=== PATIENT | female | born 1970 | race Hispanic/Latino ===

== ENCOUNTER 2020-01-25 17:52 | Emergency (ER) | payer SELFPAY ==
--- NOTE | 2020-01-25 18:34 | ER ---
Nurse's Notes [facility] Name: Yudith Ramirez Age: 49 yrs Sex: Female : 1970 Arrival Date: 01/25/2020 Time: 17:59 Bed 13 Private MD: Diagnosis: Unspecified asthma with (acute) exacerbation Presentation: 01/24 18:00 Chief complaint: EMS states: Pt had asthma attack in parking lot, used rescue inhaler x ph 3 w/ no relief, Spo2 93% RA, albuterol nebulizer given by EMS, symptoms improved, no fever or cough, temp 97.3. Coronavirus screen: Patient denies a cough. Patient denies shortness of breath or difficulty breathing. Patient denies measured and/or subjective temperature greater than 100.4F prior to today's visit. Patient denies travel on a cruise ship or to a country the [facility] currently lists as an affected area. Patient denies contact with known and/or suspected case of COVID-19. Ebola Screen: No symptoms or risks identified at this time. Initial Sepsis Screen: Does the patient meet any 2 criteria? No. Patient's initial sepsis screen is negative. Does the patient have a suspected source of infection? No. Patient's initial sepsis screen is negative. Risk Assessment: Do you want to hurt yourself or someone else? Patient reports no desire to harm self or others. Onset of symptoms was January 25, 2020. 18:00 Method Of Arrival: EMS: [facility] 18:00 Acuity: DIVYA 4 ph Historical: - Allergies: 18:02 No Known Allergies; ph - PMHx: 18:02 Asthma; ph - PSHx: 18:02 (SEPTEMBER 2015); ph - Immunization history:: Adult Immunizations unknown. - Social history:: Smoking status: Patient denies any tobacco usage or history of. Screenin:54 Abuse screen: Denies threats or abuse. Denies injuries from another. Nutritional ph screening: No deficits noted. Tuberculosis screening: No symptoms or risk factors identified. Fall Risk None identified. Assessment: 18:53 General: Appears in no apparent distress. comfortable, well groomed, Behavior is calm, ph cooperative, appropriate for age, Denies fever, feeling ill. Pain: Denies pain. Neuro: Level of Consciousness is awake, alert, obeys commands, Oriented to person, place, time, situation. Cardiovascular: Capillary refill < 3 seconds in bilateral fingers Patient's skin is warm and dry. Respiratory: Airway is patent Respiratory effort is even, unlabored, Respiratory pattern is regular, symmetrical. Derm: Skin is intact, is healthy with good turgor, Skin is pink, warm \T\ dry. Vital Signs: 18:09 BP 115 / 75; Pulse 70; Resp 16; Temp 97.9(TE); Pulse Ox 100% on R/A; Weight 62.14 kg; ss Height 5 ft. 0 in. (152.40 cm); Pain 0/10; 18:53 BP 112 / 78; Pulse 79; Resp 18; Temp 98.0; Pulse Ox 99% on R/A; ph 18:09 Body Mass Index 26.76 (62.14 kg, 152.40 cm) ED Course: 17:59 Patient arrived in ED. ph 18:00 Patient has correct armband on for positive identification. Bed in low position. Call ph light in reach. Side rails up X 1. 18:01 Triage completed. ph 18:03 [facility] kb 18:03 Leonardo Patino MD is Attending Physician. kb 18:08 Sherry Noel, BG is Primary Nurse. ph 18:09 Arm band placed on right wrist. ss 18:54 No provider procedures requiring assistance completed. Patient did not have IV access ph during this emergency room visit. Administered Medications: 18:50 Drug: predniSONE 40 mg Route: PO; ph 18:53 Follow up: Response: No adverse reaction ph Outcome: 18:34 Discharge ordered by MD. kb 18:54 Discharged to home ambulatory. ph 18:54 Condition: good 18:54 Discharge instructions given to patient, Instructed on discharge instructions, follow up and referral plans. medication usage, Demonstrated understanding of instructions, follow-up care, medications, Prescriptions given X 1. 18:54 Patient left the ED. ph Signatures: Fabby Gar FNP-C FNP-Ckb Smirch, Shelby, RN RN Sherry Noel RN RN ph
--- NOTE | 2020-01-25 18:34 | EDPHYS ---
Physician Documentation [facility] Name: Yudith Ramirez Age: 49 yrs Sex: Female : 1970 Arrival Date: 01/25/2020 Time: 17:59 Bed 13 Private MD: ED Physician Leonardo Patino HPI: 01/24 18:29 This 49 yrs old Female presents to ER via EMS with complaints of Asthma kb Exacerbation. 18:29 The patient presents to the emergency department with wheezing, Current therapy: kb albuterol inhaler, that began without any particular precipitating event, the patient was reported to have non-productive cough, trouble breathing, Pre-hospital care: med neb, albuterol, OTC inhaler. Onset: The symptoms/episode began/occurred just prior to arrival. Modifying factors: The symptoms are alleviated by nebulizer treatment, the symptoms are aggravated by nothing. Associated signs and symptoms: The patient has no apparent associated signs or symptoms. Severity of symptoms: At their worst the symptoms were moderate in the emergency department the symptoms are unchanged. The patient has experienced similar episodes in the past, several times. The patient has not recently seen a physician. Pt reports she washed her hands before leaving work and felt like her throat was getting tight, then she walked to her car and started coughing and having an asthma attack. States she took 3 puffs of her inhaler but felt like it wasn't working so she called 911. States they gave her a breathing treatment and now she is feeling much better. States this felt like a normal asthma attack that she has had in the past. . Historical: - Allergies: 18:02 No Known Allergies; ph - PMHx: 18:02 Asthma; ph - PSHx: 18:02 (SEPTEMBER 2015); ph - Immunization history:: Adult Immunizations unknown. - Social history:: Smoking status: Patient denies any tobacco usage or history of. ROS: 18:28 Constitutional: Negative for fever, chills, and weight loss, Cardiovascular: Negative kb for chest pain, palpitations, and edema, Abdomen/GI: Negative for abdominal pain, nausea, vomiting, diarrhea, and constipation, Back: Negative for injury and pain, MS/Extremity: Negative for injury and deformity, Skin: Negative for injury, rash, and discoloration, Neuro: Negative for headache, weakness, numbness, tingling, and seizure. 18:28 Respiratory: Positive for cough, shortness of breath, wheezing, Negative for dyspnea on exertion, hemoptysis, orthopnea, pleurisy, sputum production. Exam: 18:29 Constitutional: This is a well developed, well nourished patient who is awake, alert, kb and in no acute distress. Head/Face: Normocephalic, atraumatic. ENT: Nares patent. No nasal discharge, no septal abnormalities noted. Tympanic membranes are normal and external auditory canals are clear. Oropharynx with no redness, swelling, or masses, exudates, or evidence of obstruction, uvula midline. Mucous membranes moist. Neck: Trachea midline, no thyromegaly or masses palpated, and no cervical lymphadenopathy. Supple, full range of motion without nuchal rigidity, or vertebral point tenderness. No Meningismus. Chest/axilla: Normal chest wall appearance and motion. Nontender with no deformity. No lesions are appreciated. Cardiovascular: Regular rate and rhythm with a normal S1 and S2. No gallops, murmurs, or rubs. Normal PMI, no JVD. No pulse deficits. Respiratory: Lungs have equal breath sounds bilaterally, clear to auscultation and percussion. No rales, rhonchi or wheezes noted. No increased work of breathing, no retractions or nasal flaring. Abdomen/GI: Soft, non-tender, with normal bowel sounds. No distension or tympany. No guarding or rebound. No evidence of tenderness throughout. Skin: Warm, dry with normal turgor. Normal color with no rashes, no lesions, and no evidence of cellulitis. MS/ Extremity: Pulses equal, no cyanosis. Neurovascular intact. Full, normal range of motion. Neuro: Awake and alert, GCS 15, oriented to person, place, time, and situation. Cranial nerves II-XII grossly intact. Motor strength 5/5 in all extremities. Sensory grossly intact. Cerebellar exam normal. Normal gait. Vital Signs: 18:09 BP 115 / 75; Pulse 70; Resp 16; Temp 97.9(TE); Pulse Ox 100% on R/A; Weight 62.14 kg; ss Height 5 ft. 0 in. (152.40 cm); Pain 0/10; 18:53 BP 112 / 78; Pulse 79; Resp 18; Temp 98.0; Pulse Ox 99% on R/A; ph 18:09 Body Mass Index 26.76 (62.14 kg, 152.40 cm) ss MDM: 18:03 Patient medically screened. kb 18:29 Data reviewed: vital signs, nurses notes. Data interpreted: Pulse oximetry: on room air kb is 100 %. Interpretation: normal. 18:32 Counseling: I had a detailed discussion with the patient and/or guardian regarding: the kb historical points, exam findings, and any diagnostic results supporting the discharge/admit diagnosis, the need for outpatient follow up, a family practitioner, to return to the emergency department if symptoms worsen or persist or if there are any questions or concerns that arise at home. 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 No wheezing, shortness of breath noted. Lungs clear bilaterally, resp even and unlabored. O2 sat has been 100% on room air since arrival.. Administered Medications: 18:50 Drug: predniSONE 40 mg Route: PO; ph 18:53 Follow up: Response: No adverse reaction ph Disposition: 01/25 05:45 Co-signature as Attending Physician, Leonardo Patino MD I agree with the assessment and kdr plan of care. Disposition: 01/25/20 18:34 Discharged to Home. Impression: Unspecified asthma with (acute) exacerbation. - Condition is Stable. - Discharge Instructions: How to Use an Inhaler, Asthma, Adult, Ehzl-sa-Keko. - Prescriptions for Prednisone 20 mg Oral Tablet - take 1 tablet by ORAL route once daily for 5 days; 5 tablet. - Medication Reconciliation Form, Thank You Letter, Antibiotic Education, Prescription Opioid Use, Work release form form. - Follow up: Emergency Department; When: As needed; Reason: Worsening of condition. Follow up: Private Physician; When: 2 - 3 days; Reason: Recheck today's complaints, Continuance of care, Re-evaluation by your physician. Signatures: Fabby Gar, OPERATIONS AND INTELLIGENCE ASSISTANT-C MOO-Leonardo Ruiz MD MD kdr Hall, Patricia, RN RN ph Corrections: (The following items were deleted from the chart) 01/24 18:54 18:34 01/25/2020 18:34 Discharged to Home. Impression: Unspecified asthma with (acute) ph exacerbation. Condition is Stable. Forms are Medication Reconciliation Form, Thank You Letter, Antibiotic Education, Prescription Opioid Use. Follow up: Emergency Department; When: As needed; Reason: Worsening of condition. Follow up: Private Physician; When: 2 - 3 days; Reason: Recheck today's complaints, Continuance of care, Re-evaluation by your physician. kb
[2020-01-25] MEDS ORDERED: predniSONE 20 MG TAB ONE (18:55)
[2020-01-25 19:14] VITALS: BP 112/78; TEMP 98; O2SAT 99
== END 2020-01-25 18:54 | disposition home or self-care (01) ==
LOC: ER 17:52
DX: J45.901 Unspecified asthma with (acute) exacerbation (principal)
CPT/HCPCS: 99283; J7512

== ENCOUNTER 2021-10-10 21:43 | Emergency (ER) | payer OTHER, SELFPAY ==
--- OUTSIDE RECORDS SUMMARY | 2021-10-10 21:50 | XMS REPORT | Continuity of Care Document ---
:1970 Author Organization [facility] t Address [address] [place] [address] Care Team Providers Name Role Phone Sandi Littlejohn Attending Clinician Unavailable PETROS_GRACE_Diggs_R Attending Clinician Unavailable Jesus Attending Clinician [phone] MATEUS Attending Clinician Unavailable WALLY Attending Clinician Unavailable [email or web address] Admitting Clinician Unavailable Payers Payer Name Policy Type Policy Number Effective Date Expiration Date S ource GROUP \\T\\ PENSION [id number] 2020 ADMINISTRATORS 00:00:00 [facility] [id number] 2020 (O) 00:00:00 Problems This patient has no known problems. Allergies, Adverse Reactions, Alerts Allergy Allergy Status Severity Reaction(s) Onset Inactive Treating Comm ents Source Name Type Date Date Clinician No Known DA Active U 2019-0 [facility] Allergie 09-23 [facility] 00:00: e 00 [facility] No Known DA Active U 2019-0 [facility] Allergie 09-23 [facility] 00:00: e 00 [facility] Medications This patient has no known medications. Procedures This patient has no known procedures. Encounters Start End Encounter Admission Attending Care Care Encounter Source Date/Time Date/Time Type Type Clinicians Facility Department ID 2019-09-23 Inpatient KATELYNN Littlejohn DAYS [id number] [facility] 16:00:00 Boo[facility] [id number] [facility] 2021-08-02 2021-08-02 Outpatient [facility] [id number] 00:00:00 00:00:[address] 2021-07-03 2021-07-03 Outpatient [facility] PRIV PRIV [id number] [facility] 11:31:00 11:31:00 _Diggs_R [id number] Medic al 2021-07-03 2021-07-03 Outpatient Jesus, PRIV PRIV [id number] 00:00:00 00:00:00 Kathy [id number] 2021-06-10 2021-06-10 Outpatient [facility] PRIV PRIV [id number] [facility] 02:39:00 02:39:00 _Diggs_R [id number] Medic al 2021-05-20 2021-05-20 Outpatient MATEUS, [facility] [id number] 00:00:00 00:00:00 SAPANKUMAR 6[address] [facility] 2020-12-05 2020-12-05 Outpatient BEATRICEN, [facility] [id number] 00:00:00 00:00:00 MILA [address] 2020-11-14 2020-11-14 Outpatient [facility] [id number] 00:00:00 00:00:[address] 2020-04-04 2020-04-04 Outpatient MATEUS, [facility] [id number] 00:00:00 00:00:00 SAPANKUMAR [address] 2020-03-27 2020-03-27 Outpatient MATEUS, [facility] [id number] 00:00:00 00:00:00 SAPANKUMAR 780 Met [facility] Results Test Description Test Time Test Comments Results Result [facility] miriam MARTIN 2019-09-27 16:52:00 ----RUN DATE: 09/27/19 [facility] PAGE 1 RUN TIME: 1652 Specimen Inquiry RUN USER: INTERFACE ----PATIENT: SOLA TINSLEY LOC: RomaMounikaNHAN U #: [id number] AGE/SX: 49/F ROOM: RE09/23/19REG DR: Boogie Littlejohn : 74 BED: DIS: STATUS: [facility] TLOC: ---- SPEC #: [id number] RECD: 09/26/19 STATUS: [facility] #: [id number] CEFERINO: 09/23/19- SUBM DR: Boogie Littlejohn MD ENTERED: 09/26/19-1041 SP TYPE: STOMACH OTHR DR: ORDERED: GROSS PROCEDURES: GROSS (09/27/19-1423) TISSUES: 1. ANTRAL BIOPSY - H-PYLORI 2. ESOPHAGUS, NOS - BX 3. SIGMOID - POLYP 4. CECUM, NOS - POLYP CLINICAL HISTORY COLLECTION DATE: 09/23/19 EPIGASTRIC PAIN, CONSTIPATION FINAL DIAGNOSIS Antrum, biopsy: REACTIVE GASTROPATHY NO AREAS OF MUCOSAL EROSION/ULCERATION NEGATIVE FOR INTESTINAL METAPLASIA NEGATIVE FOR HELICOBACTER ORGANISMS NEGATIVE FOR MALIGNANCY Esophagus, biopsy: MIXED GLANDULAR AND SQUAMOUS EPITHELIUM WITH ELONGATION OF SQUAMOUS PAPILLAE, BASAL CELL HYPERPLASIA AND MILDLY INCREASED INTRAEPITHELIAL LYMPHOCYTES COMPATIBLE WITH REFLUX ESOPHAGITIS NO INCREASED NUMBER OF INTRAEPITHELIAL EOSINOPHILS GASTRIC-TYPE GLANDULAR MUCOSA WITH MILD-MODERATE CHRONIC INFLAMMATION, FOCAL ACUTE INFLAMMATION AND REACTIVE EPITHELIAL CHANGE NO GOBLET CELL METAPLASIA PRESENT NEGATIVE FOR HIGH GRADE DYSPLASIA AND MALIGNANCY Sigmoid colon polyp, biopsy: TUBULAR ADENOMA NEGATIVE FOR HIGH GRADE DYSPLASIA AND MALIGNANCY Cecal polyp, biopsy: TUBULAR ADENOMA AND MULTIPLE FRAGMENTS OF FECAL MATERIAL NEGATIVE FOR HIGH GRADE DYSPLASIA AND MALIGNANCY CONTINUED ON NEXT PAGE ----RUN DATE: 09/27/19 [facility] PAGE 2 RUN TIME: 1651 Specimen Inquiry RUN USER: INTERFACE ----SPEC #: [id number] PATIENT: SOLA TINSLEY #[id number] (Continued) FINAL DIAGNOSIS (Continued) RRHelder/ger D [id number] MACROSCOPIC The first specimen is received in formalin, labeled with the patient's name, and identified as "antrum", and consists of mendez biopsy tissue measuring up to 0.25 cm in aggregate, submitted as (1). The second specimen is received in formalin, labeled with the patient's name, and identified as "esophagus", and consists of mendez biopsy tissue measuring 0.2 cm in aggregate, submitted as (2). The third specimen is received in formalin, labeled with the patient's name, and identified as "sigmoid polyp", and consists of mendez biopsy tissue measuring 0.25 cm, submitted as (3). The fourth specimen is received in formalin, labeled with the patient's name, and identified as "cecum polyp ", and consists of dark and light mendez biopsy tissue measuring 0.3 cm in aggregate, submitted as (4). GROSS PERFORMED AT [facility] [address] [place] [address] [id number] [phone])[phone] MICROSCOPIC All of the stains, including any controls performed, stain appropriately. MICROSCOPIC PERFORMED AT [facility] [address] [place] [address] 77504 [phone])[phone] PERFORMING SITE Diagnosis performed at: [facility], [address] [id number] CONTINUED ON NEXT PAGE ----RUN DATE: 09/27/19 [facility] PAGE 3 RUN TIME: 1652 Specimen Inquiry RUN USER: INTERFACE ----SPEC #: [id number] PATIENT: SOLA TINSLEY #[id number] (Continued) ---- Signed SIGNATURE ON FILE Reese Marx MD 09/27/191651 ---- END OF REPORT BASIC METABOLIC PANEL 2019-09-23 14:02:00 Test Item Value Reference Range Interpretation Comme nts SODIUM (test code = NA) 142 mmol/L 136-145 N POTASSIUM (test code = K) 4.2 mmol/L 3.5-5.1 N CHLORIDE (test code = CL) 108.0 mmol/L 98-107 H CARBON DIOXIDE (test code = 28.0 mmol/L 21-32 N CO2) ANION GAP (test code = GAP) 10.2 10-20 N GLUCOSE (test code = GLU) 83 mg/dL 74-106 N BLOOD UREA NITROGEN (test code 12 mg/dL 7-18 N = BUN) GLOMERULAR FILTRATION RATE > 60 mL/min >=60 E stimated GFR by using (test code = GFR) Modified M DRD formula.Chronic kidney disease is defined as either kidney d amageor GFR <60 mL/min/1.73 m2 for >3 months. CREATININE (test code = CREAT) 0.90 mg/dL 0.55-1.02 N Note change in reference range due to ch rebekah in reagent. BUN/CREATININE RATIO (test code 13.3 10-20 N = BUN/CREA) CALCIUM (test code = CA) 9.0 mg/dL 8.5-10.1 N HCG SERUM [id number] 14:02:00 Test Item Value Reference Range Interpretation Comments HCG SERUM QUAL (test NEGATIVE NEGATIVE This HC GQL test is NOT code = HCGQL) applicable for MALE patients.Check with nurse about probable order error.If Tumor Marker Test needed, nu rse should order test "HCG TU"(Test #550.35458)---- - BASIC METABOLIC [id number] 13:32:00 Test Item Value Reference Range Interpretation Comments SODIUM (test code = 142 mmol/L 136-145 N NA) POTASSIUM (test code 4.2 mmol/L 3.5-5.1 N = K) CHLORIDE (test code = 108.0 mmol/L 98-107 H CL) CARBON DIOXIDE (test 28.0 mmol/L 21-32 N code = CO2) ANION GAP (test code 10.2 10-20 N = GAP) GLUCOSE (test code = 83 mg/dL 74-106 N GLU) BLOOD UREA NITROGEN 12 mg/dL 7-18 N (test code = BUN) GLOMERULAR FILTRATION > 60 mL/min >=60 Estima matthew GFR by RATE (test code = using Valente fied MDRD GFR) formula.Chronic kidney disease is defined as [facility] kidney damageor GFR <60 mL/min/1.73 m2 for >3 months. CREATININE (test code 0.90 mg/dL 0.55-1.02 N Note change in = CREAT) reference range due to change in reagent. BUN/CREATININE RATIO 13.3 10-20 N (test code = BUN/CREA) CALCIUM (test code = 9.0 mg/dL 8.5-10.1 N CA) HCG SERUM [id number] 13:32:00 Test Item Value Reference Range Interpretation Comments HCG SERUM QUAL (test code = HCGQL) NEGATIVE BASIC METABOLIC [id number] 13:26:00 Test Item Value Reference Range Interpretation Comments SODIUM (test code = NA) 142 mmol/L 136-145 N POTASSIUM (test code = K) 4.2 mmol/L 3.5-5.1 N CHLORIDE (test code = CL) 108.0 mmol/L 98-107 H CARBON DIOXIDE (test code = CO2) mmol/L 21-32 ANION GAP (test code = GAP) 10-20 GLUCOSE (test code = GLU) mg/dL 74-106 BLOOD UREA NITROGEN (test code = mg/dL 7-18 BUN) GLOMERULAR FILTRATION RATE (test mL/min >=60 code = GFR) CREATININE (test code = CREAT) mg/dL 0.55-1.02 BUN/CREATININE RATIO (test code 10-20 = BUN/CREA) CALCIUM (test code = CA) mg/dL 8.5-10.1 HCG SERUM [id number] 13:26:00 Test Item Value Reference Range Interpretation Comments HCG SERUM QUAL (test code = HCGQL) NEGATIVE CBC W/AUTO [id number] 13:07:00 Test Item Value Reference Range Interpretation Comments WHITE BLOOD CELL (test code = 5.3 K/mm3 4.5-12.5 N WBC) RED BLOOD CELL (test code = 4.87 mill/mm3 3.7-5.2 N RBC) HEMOGLOBIN (test code = HGB) 14.6 gram/dL 11.5-15.5 N HEMATOCRIT (test code = HCT) 43.6 % 36.0-46.0 N MEAN CELL VOLUME (test code = 89.5 fL 80-98 N MCV) MEAN CELL HGB (test code = MCH) 30.0 picogram 27.0-33.0 N MEAN CELL HGB CONCETRATION 33.5 gram/dL 33.0-36.0 N (test code = MCHC) RED CELL DISTRIBUTION WIDTH 12.4 % 11.6-16.2 N (test code = RDW) RED CELL DISTRIBUTION WIDTH SD 40.8 fL 37.0-51.0 N (test code = RDW-SD) PLATELET COUNT (test code = 197 K/mm3 150-450 N PLT) MEAN PLATELET VOLUME (test code 11.5 fL 6.7-11.0 H = MPV) NEUTROPHIL % (test code = NT%) 57.5 % 39.0-69.0 N IMMATURE GRANULOCYTE % (test 0.2 % 0.0-5.0 N code = IG%) LYMPHOCYTE % (test code = LY%) 34.2 % 25.0-55.0 N MONOCYTE % (test code = MO%) 5.5 % 0.0-10.0 N EOSINOPHIL % (test code = EO%) 1.3 % 0.0-5.0 N BASOPHIL % (test code = BA%) 1.3 % 0.0-1.0 H NUCLEATED RBC % (test code = 0.0 % 0-0 N NRBC%) NEUTROPHIL # (test code = NT#) 3.03 K/mm3 1.8-7.7 N IMMATURE GRANULOCYTE # (test 0.01 x10 3/uL 0-0.03 N code = IG#) LYMPHOCYTE # (test code = LY#) 1.80 K/mm3 1.0-5.0 N MONOCYTE # (test code = MO#) 0.29 K/mm3 0-0.8 N EOSINOPHIL # (test code = EO#) 0.07 K/mm3 0.0-0.5 N BASOPHIL # (test code = BA#) 0.07 K/mm3 0.0-0.2 N NUCLEATED RBC # (test code = 0.00 K/mm3 0.0-0.1 N NRBC#) MANUAL DIFF REQUIRED (test code NO = MDIFF)
--- NOTE | 2021-10-11 00:22 | EDPHYS ---
Physician Documentation [facility] Name: Yudith Ramirez Age: 51 yrs Sex: Female : 1970 Arrival Date: 10/10/2021 Time: 21:47 Bed 30 Private MD: ED Physician Leonardo Patino HPI: 10/11 06:40 This 51 yrs old Female presents to ER via EMS with complaints of Gas Exposure. kdr 06:40 The patient has shortness of breath at rest, with light activity. Onset: The kdr symptoms/episode began/occurred suddenly, just prior to arrival. Duration: The symptoms Brief exposure reported by EMS. The patient's shortness of breath has no apparent modifying factors. Associated signs and symptoms: The patient has no apparent associated signs or symptoms, Pertinent positives:. Severity of symptoms: At their worst the symptoms were mild moderate in the emergency department the symptoms are unchanged. The patient has not experienced similar symptoms in the past. The patient has not recently seen a physician. The patient and EMS report that there was a cloud of dispersed gas that the patient was exposed to briefly. Patient states that she started to cough and gag as soon as she was exposed to the cloud of gas. She began to feel her nose and mouth burn as well as is felt as if her throat was going to close up. EMS gave several albuterol treatments in route to the hospital. On initial exam the patient was comfortable and not in any acute distress. She was nontoxic appearing and did not require any emergent intervention based on my initial exam. 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 - Social history:: Smoking status: Patient denies any tobacco usage or history of. ROS: 10/11 06:40 Constitutional: Negative for fever, chills, and weight loss, Eyes: Negative for injury, kdr pain, redness, and discharge, Neck: Negative for injury, pain, and swelling, Cardiovascular: Negative for chest pain, palpitations, and edema, Abdomen/GI: Negative for abdominal pain, nausea, vomiting, diarrhea, and constipation, Back: Negative for injury and pain, : Negative for injury, bleeding, discharge, and swelling, MS/Extremity: Negative for injury and deformity, Skin: Negative for injury, rash, and discoloration, Neuro: Negative for headache, weakness, numbness, tingling, and seizure activity. Psych: Negative for depression, anxiety, suicide ideation, homicidal ideation, and hallucinations, Allergy/Immunology: Negative for hives, rash, and allergies, Endocrine: Negative for neck swelling, polydipsia, polyuria, polyphagia, and marked weight changes, Hematologic/Lymphatic: Negative for swollen nodes, abnormal bleeding, and unusual bruising. Respiratory: Positive for cough, with no reported sputum, dyspnea on exertion, shortness of breath, at rest. wheezing. Exam: 06:40 Constitutional: This is a well developed, well nourished patient who is awake, alert, kdr and in no acute distress. Head/Face: Normocephalic, atraumatic. Eyes: Pupils equal round and reactive to light, extra-ocular motions intact. Lids and lashes normal. Conjunctiva and sclera are non-icteric and not injected. Cornea within normal limits. Periorbital areas with no swelling, redness, or edema. Neck: Trachea midline, no thyromegaly or masses palpated, and no cervical lymphadenopathy. Supple, full range of motion without nuchal rigidity, or vertebral point tenderness. No Meningismus. Chest/axilla: Normal chest wall appearance and motion. Nontender with no deformity. No lesions are appreciated. Cardiovascular: Regular rate and rhythm with a normal S1 and S2. No gallops, murmurs, or rubs. Normal PMI, no JVD. No pulse deficits. Respiratory: Lungs have equal breath sounds bilaterally, clear to auscultation and percussion. No rales, rhonchi or wheezes noted. No increased work of breathing, no retractions or nasal flaring. Abdomen/GI: Soft, non-tender, with normal bowel sounds. No distension or tympany. No guarding or rebound. No evidence of tenderness throughout. Back: No spinal tenderness. No costovertebral tenderness. Full range of motion. Skin: Warm, dry with normal turgor. Normal color with no rashes, no lesions, and no evidence of cellulitis. MS/ Extremity: Pulses equal, no cyanosis. Neurovascular intact. Full, normal range of motion. Neuro: Awake and alert, GCS 15, oriented to person, place, time, and situation. Cranial nerves II-XII grossly intact. Motor strength 5/5 in all extremities. Sensory grossly intact. Cerebellar exam normal. Normal gait. Psych: Awake, alert, with orientation to person, place and time. Behavior, mood, and affect are within normal limits. Vital Signs: 10/10 21:48 BP 131 / 85; Pulse 82; Resp 18; Temp 98.1; Pulse Ox 100% on R/A; Weight 61.23 kg; ss7 Height 5 ft. 0 in. (152.40 cm); 23:41 BP 108 / 58; Pulse 67; Resp 18; Temp 98.1; Pulse Ox 97% on R/A; ss7 10/11 00:02 BP 108 / 66; Pulse 68; Resp 18; Pulse Ox 100% on R/A; Pain 0/10; brandt 01:15 BP 110 / 62; Pulse 62; Resp 18; Temp 98.5; Pulse Ox 100% on R/A; Pain 0/10; brandt 10/10 21:48 Body Mass Index 26.37 (61.23 kg, 152.40 cm) 7 MDM: 00:22 Patient medically screened. kdr 06:40 Data reviewed: vital signs, nurses notes, lab test result(s), radiologic studies. kdr Counseling: I had a detailed discussion with the patient and/or guardian regarding: the historical points, exam findings, and any diagnostic results supporting the discharge/admit diagnosis, lab results, radiology results, the need for outpatient follow up. 10/10 22:16 Order name: CXR XRAY kdr Administered Medications: 00:27 Not Given (Patient Refused): predniSONE 40 mg PO once brandt Disposition Summary: 10/11/21 00:22 Discharge Ordered Location: Home kdr Problem: new kdr Symptoms: have improved kdr Condition: Stable kdr Diagnosis - Reactive Airway Disease kdr - Reactive Airway Disease - chemical irritant exposure kdr Followup: kdr - With: Private Physician - When: 2 - 3 days - Reason: If symptoms return, Further diagnostic work-up, Recheck today's complaints, Continuance of care, Re-evaluation by your physician Discharge Instructions: - Discharge Summary Sheet kdr - Asthma Attack kdr - Chemical Inhalation Injury, Adult kdr Forms: - Medication Reconciliation Form kdr - Thank You Letter kdr Signatures: Dispatcher [employer] Leonardo Akins MD MD kdr Cindy Constantino RN RN ss7 Shirin Rutledge RN brandt
--- NOTE | 2021-10-11 00:22 | ER ---
Nurse's Notes [facility] Name: Yudith Ramirez Age: 51 yrs Sex: Female : 1970 Arrival Date: 10/10/2021 Time: 21:47 Bed 30 Private MD: Diagnosis: Reactive Airway Disease;Reactive Airway Disease - chemical irritant exposure Presentation: 10/10 21:48 Chief complaint: EMS states: Pt c/o wheezing and sob after inhaling vinyl chloride and ss7 HCL while at work. Pt given 3 nebulizer treatments in route. Coronavirus screen: Vaccine status: Patient reports receiving the 2nd dose of the covid vaccine. Ebola Screen: No symptoms or risks identified at this time. Initial Sepsis Screen: Does the patient meet any 2 criteria? No. Patient's initial sepsis screen is negative. Does the patient have a suspected source of infection? No. Patient's initial sepsis screen is negative. Risk Assessment: Do you want to hurt yourself or someone else? Patient reports no desire to harm self or others. Onset of symptoms was October 10, 2021. 21:48 Method Of Arrival: EMS: [facility] 3 ss7 21:48 Acuity: DIVYA 3 ss7 22:13 Note Poison Control contacted recommendations as follows: baseline chest Xray, bb symptomatic treatment. Triage Assessment: 21:52 General: Appears in no apparent distress. Behavior is calm, cooperative, appropriate ss7 for age. Pain: Denies pain. Cardiovascular: Heart tones S1 S2. Respiratory: Breath sounds are clear bilaterally. 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 - Social history:: Smoking status: Patient denies any tobacco usage or history of. Screenin:51 Abuse screen: Denies threats or abuse. Nutritional screening: No deficits noted. ss7 Tuberculosis screening: No symptoms or risk factors identified. Fall Risk None identified. Assessment: 03/18 00:03 Reassessment: Patient appears in no apparent distress at this time. I recv'd report on brandt the pt in room 30, from the off going RN. The pt is in NAD. 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 00:45 General: Awaiting dc paperwork. The pt reports,"I feel much better." She dressed brandt herself and is awaiting dispo. . 01:15 General: Awaiting dc paperwork. . brandt Vital Signs: 10/10 21:48 BP 131 / 85; Pulse 82; Resp 18; Temp 98.1; Pulse Ox 100% on R/A; Weight 61.23 kg; ss7 Height 5 ft. 0 in. (152.40 cm); 23:41 BP 108 / 58; Pulse 67; Resp 18; Temp 98.1; Pulse Ox 97% on R/A; ss7 10/11 00:02 BP 108 / 66; Pulse 68; Resp 18; Pulse Ox 100% on R/A; Pain 0/10; brandt 01:15 BP 110 / 62; Pulse 62; Resp 18; Temp 98.5; Pulse Ox 100% on R/A; Pain 0/10; brandt 10/10 21:48 Body Mass Index 26.37 (61.23 kg, 152.40 cm) 7 ED Course: 10/10 21:47 Patient arrived in ED. wm 21:48 Leonardo Patino MD is Attending Physician. kdr 21:48 Cindy Constantino RN is Primary Nurse. ss7 21:50 Triage completed. ss7 21:51 Patient has correct armband on for positive identification. Call light in reach. Side ss7 rails up X2. 21:51 No provider procedures requiring assistance completed. ss7 21:53 Arm band placed on. ss7 22:51 CXR XRAY In Process Unspecified. EDMS 23:58 Report given to BG Carpio. ss7 10/11 01:20 Patient did not have IV access during this emergency room visit. brandt Administered Medications: 00:27 Not Given (Patient Refused): predniSONE 40 mg PO once brandt Outcome: 00:05 Condition: stable brandt 00:22 Discharge ordered by . kdr 01:20 Discharged to home ambulatory, with family. brandt 01:20 Discharge instructions given to patient, Instructed on discharge instructions, follow up and referral plans. Demonstrated understanding of instructions, follow-up care. 01:30 Patient left the ED. brandt Signatures: Dispatcher [employer] EDMS Leonardo Patino MD MD kdr Ballard, Brenda, RN RN Salima Ruiz Brenda, RN RN bo Smith, Shana, RN RN ss7 Corrections: (The following items were deleted from the chart) 10/10 21:53 21:48 Chief complaint: EMS states: Pt c/o wheezing and sob after inhaling vinyl ss7 chloride and HCL while at work. ss7
[2021-10-11] MEDS ORDERED: predniSONE 20 MG TAB ONE (00:25)
[2021-10-11 03:26] VITALS: O2SAT 100
[2021-10-11 03:31] VITALS: BP 110/62; TEMP 98.5
--- NOTE | 2021-10-11 12:03 | RAD REPORT ---
EXAM DESCRIPTION: RAD - Chest Single View - 10/10/2021 10:51 pm CLINICAL HISTORY: 11 years Female, DYSPNEA COMPARISON: None FINDINGS: No focal lung consolidation. No pleural effusion. No pneumothorax. Cardiomediastinal silhouette is within normal limits. No acute osseous abnormality. IMPRESSION: No acute cardiopulmonary disease. Electronically signed by: Charlie Howell DO 10/10/2021 11:26 PM CDT Due to temporary technical issues with the PACS/Fluency reporting system, reports are being signed by the in house radiologist without review as a courtesy to ensure prompt reporting. The interpreting r adiologist is fully responsible for the content of the report.
== END 2021-10-11 01:30 | disposition home or self-care (01) ==
LOC: ER 21:43
DX: J45.909 Unspecified asthma, uncomplicated (principal); Z77.098 Contact with and (suspected) exposure to other hazardous, chiefly nonmedicinal, chemicals
CPT/HCPCS: 71045; 99283; J7512